=== PATIENT | female | born 1995 | race Caucasian/White ===

== ENCOUNTER 2024-04-27 14:56 | Outpatient (CLI) | payer BC, SELFPAY ==
[2024-04-30 07:00] LABS: HPV Source Cervical; HPV, High Risk by TMA Not Detected
[2024-05-08 14:12] LABS: Pap Test Reviewed by Path Done
== END 2024-04-27 14:57 | disposition home or self-care (01) ==
PROVIDERS: Visit Provider Obstetrics & Gynecology
DX: Z12.4 Encounter for screening for malignant neoplasm of cervix (principal); Z11.51 Encounter for screening for human papillomavirus (HPV)
CPT/HCPCS: 87624; 87625; 88141; 88142

== ENCOUNTER 2024-07-28 14:12 | Outpatient (CLI) | payer BC, SELFPAY | END 2024-07-28 14:13 | disposition home or self-care (01) | LOC: FRMREF 14:26 | PROVIDERS: Visit Provider Family Medicine | DX: K92.1 Melena (principal) | CPT/HCPCS: 82728 ==

== ENCOUNTER 2025-01-04 17:04 | Outpatient (CLI) | payer BC, SELFPAY ==
--- NOTE | 2025-01-04 17:30 | CRLHL7_ITS ---
For Patients: As a result of the Century Cures Act, medical imaging exams and procedure reports are released immediately into your electronic medical record. You may view this report before your referring provider. If you have questions, please contact your health care provider. INDICATION: cyst of right ovary per MRI at [facility] 09/26/24 report in patient chart COMPARISON: Outside study not available TECHNIQUE: 2D garber-scale and color Doppler images were acquired of the pelvis using a transabdominal and transvaginal approach. Transvaginal imaging performed to better visualize the endometrial stripe and ovaries. FINDINGS: Sonographic images demonstrate a normal size and smooth outer contour of the uterus. Uterus measures 7.8 cm in length by 4.0 cm in AP diameter by 5.4 cm in transverse dimension. The myometrium has a normal uniform echotexture. Endometrium is normal. Good position of an IUD. The right ovary measures 2.9 x 3.6 x 2.6 cm in size and the left ovary measures 5.6 x 4.3 x 4.7 cm. The ovaries demonstrate normal arterial and venous blood flow on color Doppler analysis. There are no suspicious fluid collections within the cul-de-sac. There is a mostly anechoic left ovarian cyst measuring 4.2 x 3.9 x 3.7 cm. Color flow analysis was difficult due to position but there is no evidence of internal blood flow within this lesion. Some peripheral irregularity suggested. IMPRESSION: Low risk left ovarian cyst measures 4.2 cm. If not surgically excised, follow-up ultrasound in 6 months recommended. Dictated by Timur Christianson MD @ 01/05/2025 7:47:31 AM (Electronically Signed)
== END 2025-01-04 17:05 | disposition home or self-care (01) ==
LOC: US 17:05
PROVIDERS: PCP Family Medicine; Visit Provider Obstetrics & Gynecology
DX: N83.201 Unspecified ovarian cyst, right side (principal)
CPT/HCPCS: 76830; 76856; 93976

== ENCOUNTER 2025-02-14 17:11 | Outpatient (CLI) | payer BC, SELFPAY ==
--- NOTE | 2025-02-14 17:30 | CRLHL7_ITS ---
For Patients: As a result of the Century Cures Act, medical imaging exams and procedure reports are released immediately into your electronic medical record. You may view this report before your referring provider. If you have questions, please contact your health care provider. INDICATION: F/u ovarian cyst COMPARISON: 01/04/2025 TECHNIQUE: 2D garber-scale and color Doppler images were acquired of the pelvis using a transabdominal and transvaginal approach. Transvaginal imaging performed to better visualize the endometrial stripe and ovaries. FINDINGS: Sonographic images demonstrate a normal size and smooth outer contour of the uterus. Uterus measures 7.7 cm in length by 4.6 cm in AP diameter by 6.5 cm in transverse dimension. The myometrium has a normal uniform echotexture. The endometrial lining appears normal and measures 4.7 mm in composite thickness. IUD is present in the endometrial canal in good position. The right ovary measures 3.5 x 3.6 x 3.3 cm in size and the left ovary measures 4.0 x 1.9 x 2.4 cm. The ovaries demonstrate normal arterial and venous blood flow on color Doppler analysis. There are no suspicious fluid collections within the cul-de-sac. Collapsed left ovarian cyst measures 2.4 x 1.6 x 1.6 cm. IMPRESSION: Collapsed left ovarian cyst measures 2.4 cm. No suspicious findings. Dictated by Timur Christianson MD @ 02/14/2025 6:27:19 PM (Electronically Signed)
== END 2025-02-14 17:12 | disposition home or self-care (01) ==
LOC: US 17:11
PROVIDERS: PCP Family Medicine; Visit Provider Obstetrics & Gynecology
DX: N83.209 Unspecified ovarian cyst, unspecified side (principal)
CPT/HCPCS: 76830; 76856

== ENCOUNTER 2025-04-30 09:20 | Outpatient (CLI) | payer BC, SELFPAY ==
[2025-05-02 22:33] LABS: HPV Source Cervix
[2025-05-08 12:29] LABS: Pap Test Digital Imaging Done
== END 2025-04-30 09:21 | disposition home or self-care (01) ==
PROVIDERS: PCP Family Medicine; Visit Provider Obstetrics & Gynecology
DX: Z12.4 Encounter for screening for malignant neoplasm of cervix (principal)
CPT/HCPCS: 87624; 87625; 88141; 88142; 88175

== ENCOUNTER 2025-05-09 07:52 | Outpatient (CLI) | payer BC, SELFPAY ==
--- NOTE | 2025-05-09 08:15 | CRLHL7_ITS ---
For Patients: As a result of the Century Cures Act, medical imaging exams and procedure reports are released immediately into your electronic medical record. You may view this report before your referring provider. If you have questions, please contact your health care provider. INDICATION: Intra-abdominal and pelvic swelling; cystic mass anterior to sacrum. COMPARISON: Pelvic ultrasound 02/14/2025 and 01/04/2025. TECHNIQUE: MR of the pelvis without and with intravenous contrast; precontrast T1 and T2 weighted imaging; T2 haste imaging; diffusion-weighted imaging; postcontrast imaging and axial, coronal and sagittal projections; 14 cc of dotarem contrast was injected IV. FINDINGS: Normal uterus. Ovaries are normal with no ovarian cyst. Multiple normal-appearing follicles. No cystic or solid mass lesions anterior to the sacrum. Copious amount of retained stool identified within the colon. No abnormal pelvic lymphadenopathy. No adnexal pathology. IMPRESSION: Normal MRI of the pelvis without and with intravenous contrast. Dictated by Jonna May MD @ 05/11/2025 1:35:14 PM (Electronically Signed)
== END 2025-05-09 07:53 | disposition home or self-care (01) ==
LOC: MRI 07:52
PROVIDERS: PCP Family Medicine; Visit Provider Obstetrics & Gynecology
DX: R19.00 Intra-abdominal and pelvic swelling, mass and lump, unspecified site (principal)
CPT/HCPCS: 72197; A9575